=== PATIENT | male | born 1965 | race Caucasian/White ===

== ENCOUNTER 2017-02-21 19:33 | Emergency (ER) | payer SELFPAY ==
[~2017-02-21] VITALS: Ht 175.3 cm; Wt 81.0 kg
[~2017-02-21 19:33] MED LIST: bp med; metformin
[2017-02-21 19:37] VITALS: BP 160/96
== END 2017-02-21 21:38 | disposition left against medical advice (07) ==
LOC: EME 19:33
DX: M54.5 Low back pain (principal); Z53.21 Procedure and treatment not carried out due to patient leaving prior to being seen by health care provider

== ENCOUNTER 2017-02-23 12:57 | Emergency (ER) | payer OTHER ==
[~2017-02-23] VITALS: Ht 177.8 cm; Wt 80.4 kg
[2017-02-23] MEDS ORDERED: NORCO 5/3251 TABLET PO (13:13)
[2017-02-23] MEDS ORDERED: MOTRIN600 MG PO (13:13)
[2017-02-23] MEDS ORDERED: FLEXERIL5 MG PO (13:13)
[2017-02-23 14:26] VITALS: BP 118/68
== END 2017-02-23 14:27 | disposition home or self-care (01) ==
LOC: EME 12:57
DX: S39.012A Strain of muscle, fascia and tendon of lower back, initial encounter (principal); V89.2XXA Person injured in unspecified motor-vehicle accident, traffic, initial encounter; Y92.410 Unspecified street and highway as the place of occurrence of the external cause; I10 Essential (primary) hypertension; E11.9 Type 2 diabetes mellitus without complications; F17.200 Nicotine dependence, unspecified, uncomplicated
CPT/HCPCS: 72100; 99281; 99284